=== PATIENT | male | born 1995 | race Caucasian/White ===

== ENCOUNTER 2017-08-16 19:37 | Emergency (ER) | payer OTHER ==
[~2017-08-16] VITALS: Ht 167.6 cm; Wt 63.5 kg
[~2017-08-16 19:37] MED LIST: BIAXIN250 MG/51 PO; CIPRO250 MG PO; CIPRODEX 0.3%-7.5 ML OT; CLARITIN-D 10 M1 T21 PO; CLARITIN5 MG/5 ML PO; DOXYCYCLINE HY100 M3 PO; FLONASE ALLERG9.9 ML NAS; MEDROL DOSEPAK4 MG PO; MOTRIN600 MG PO; MOTRIN800 MG PO; NKHM; PREDNISONE10 MG PO; PRELONE5 MG/5 ML PO; ROBITUSSIN AC 110 ML PO; TESSALON PERLE200 MG PO; TOBRADEX 0.1%-0.5 ML OPH; ZITHROMAX Z PA250 MG PO; ZOFRAN ODT4 MG SL; ZYRTEC10 MG PO
== END 2017-08-16 20:28 | disposition home or self-care (01) ==
LOC: ED 19:37
DX: S01.01XA Laceration without foreign body of scalp, initial encounter (principal); S50.812A Abrasion of left forearm, initial encounter; Z88.0 Allergy status to penicillin; Z88.1 Allergy status to other antibiotic agents; V00.131A Fall from skateboard, initial encounter; Y93.51 Activity, roller skating (inline) and skateboarding; Y92.89 Other specified places as the place of occurrence of the external cause; Y99.8 Other external cause status

== ENCOUNTER 2017-08-20 15:07 | Emergency (ER) | payer OTHER ==
[~2017-08-20] VITALS: Ht 167.6 cm; Wt 63.5 kg
== END 2017-08-20 15:24 | disposition home or self-care (01) ==
LOC: ED 15:07
DX: S01.01XD Laceration without foreign body of scalp, subsequent encounter (principal); Z88.0 Allergy status to penicillin; Z88.1 Allergy status to other antibiotic agents; V00.131D Fall from skateboard, subsequent encounter

== ENCOUNTER 2018-11-25 13:09 | Emergency (ER) | payer SELFPAY ==
[~2018-11-25] VITALS: Ht 170.1 cm; Wt 65.8 kg
[2018-11-25] MEDS ORDERED: PREDNISONE20 M1 PO (13:42)
== END 2018-11-25 13:52 | disposition home or self-care (01) ==
LOC: ED 13:09
DX: L50.9 Urticaria, unspecified (principal); Z88.1 Allergy status to other antibiotic agents

== ENCOUNTER 2020-01-04 23:34 | Emergency (ER) | payer SELFPAY ==
[~2020-01-04] VITALS: Wt 84.8 kg
[~2020-01-04 23:34] MED LIST changes: +PREDNISONE20 M1 PO
== END 2020-01-05 00:18 | disposition left against medical advice (07) ==
LOC: ED 23:34
DX: M79.672 Pain in left foot (principal); Z88.1 Allergy status to other antibiotic agents; W11.XXXA Fall on and from ladder, initial encounter; Y93.89 Activity, other specified; Y92.098 Other place in other non-institutional residence as the place of occurrence of the external cause; Y99.8 Other external cause status

== ENCOUNTER → 2020-09-05 | Outpatient (CLI) | payer OTHER ==
[2020-09-05 13:55] LABS: BASO % 0.4 % (0.0-1.0); EOS % 2.2 % (1.0-4.0); HEMATOCRIT 45.8 % (42.0-52.0); LYMPH % 27.4 % (27.0-41.0); MEAN CELL VOLUME 91.6 fl (80.0-94.0); MEAN CORPUSCULAR HGB 30.6 pg (27.0-31.0); MEAN CORPUSCULAR HGB CONC 33.4 g/dl (33.0-37.0); MONO % 6.1 % (3.0-9.0); NEUT # 4.4 10*3/uL (2.3-7.9); NEUT % 63.5 % (47.0-73.0); PLATELET COUNT AUTOMATED 211 10*3/uL (130-400); RED CELL DISTRI WIDTH 12.8 % (0-14.5); WHITE BLOOD COUNT 6.9 10*3/uL (4.8-10.8)
[2020-09-05 13:56] LABS: EOS # 0.2 10*3/uL (0.0-0.4); LYMPH # 1.9 10*3/uL (1.3-4.4); MONO # 0.4 10*3/uL (0.1-1.0)
[2020-09-05 14:37] LABS: ALBUMIN 3.8 gm/dl (3.1-4.5); ALKALINE PHOSPHATASE 107 U/L (45-117); BILIRUBIN, DIRECT 0.2 mg/dL (0.0-0.2); BUN 11 mg/dl (7-24); CHLORIDE 107 mmol/L (98-107); POTASSIUM 4.2 mmol/L (3.5-5.1); SGOT/AST 20 IU/L (3-35); SGPT/ALT 44 U/L (12-78); SODIUM 137 mmol/L (136-145); TOTAL PROTEIN 7.8 gm/dL (6.4-8.2)
== END | disposition home or self-care (01) ==
LOC: LAB 13:34
PROVIDERS: ATTEND Physician Assistant
DX: Z51.81 Encounter for therapeutic drug level monitoring (principal)